=== PATIENT | male | born 1950 | race African-American/Black ===

== ENCOUNTER 2016-05-06 15:33 | Inpatient (IN) | payer MEDICARE ==
[~2016-05-06] VITALS: Ht 185.4 cm; Wt 81.6 kg
[~2016-05-06 15:33] MED LIST: CYCL-108 PO; HYDR-3933 PO; METH4TAB17 PO; OMEP20CA10 PO
[2016-05-06 16:00] VITALS: BP 121/84
[2016-05-06 17:32] VITALS: BP 121/81
[2016-05-06] MEDS ORDERED: HYDR12.529 PO (18:29)
[2016-05-06] MEDS ORDERED: ELLIPTA INH (18:30)
[2016-05-06] MEDS: OMEPRAZOLE 20MG CAPSULE EXTENDED RELEASE PO SCH (19:05)
[2016-05-06] MEDS ORDERED: RIVAROXABAN 10 MG TABLET PO SCH (19:30)
[2016-05-06] MEDS ORDERED: DILTIAZEM HCL 180MG CAPSULE CD 24HR PO NR (19:30)
[2016-05-06 19:49] LABS: BASOPHILS % 1.3 % (0.0-2.0); DIFFERENTIAL COMMENT 0; EOSINOPHILS % 3.5 % (0.0-5.0); HEMATOCRIT. 35.8 % (42.0-52.0); LYMPHOCYTES % 23.4 % (20.0-50.0); MEAN CORPUSCULAR HEMOGLOBIN 28.4 pg (28.0-32.0); MEAN CORPUSCULAR HGB CONC 33.6 g/dL (31.0-37.0); MEAN CORPUSCULAR VOLUME 84.6 fL (80.0-94.0); MEAN PLATELET VOLUME 8.7 fl (7.4-10.4); MONOCYTES % 11.1 % (2.0-8.0); NEUTROPHILS % 60.7 % (40.0-76.0); PLATELET 142 x1000/uL (130-400); RED BLOOD CELL COUNT 4.23 mill/uL (4.7-6.1); RED CELL DISTRIBUTION WIDTH 15.2 % (11.6-14.6); WHITE BLOOD COUNT 4.1 x1000/uL (4.5-11.0)
[2016-05-06 19:55] LABS: INR 1.2; PROTHROMBIN TIME 12.6 sec
[2016-05-06 20:00] VITALS: BP 120/79
[2016-05-06 20:11] LABS: ANION GAP 12; CALCIUM 8.8 mg/dL (8.5-10.1); CARBON DIOXIDE 29 mEq/L (21-32); CHLORIDE 103 mEq/L (98-107); INDEX HEMOLYSI 1 (1-3); INDEX ICTERIC 1 (1-4); INDEX LIPEMIC 1 (1-3); NT PRO B-TYPE NATRIURETIC PEP 3519 pg/mL (5-125); UREA NITROGEN BLOOD 16 mg/dL (7-21); eGFR > 60 mL/min (>60)
[2016-05-06] MEDS ORDERED: ACETAMINOPHEN 325MG TABLET PO PRN (20:15)
[2016-05-06] MEDS: ENOXAPARIN 80MG/0.8ML SYR SUBCUT SCH (20:43)
[2016-05-07] VITALS: BP 99/64
[2016-05-07 06:30] VITALS: BP 98/64
[2016-05-07] MEDS: OMEPRAZOLE 20MG CAPSULE EXTENDED RELEASE PO SCH (06:37)
[2016-05-07] MEDS ORDERED: FUROSEMIDE 40MG/4ML VIAL IVP SCH (07:30)
[2016-05-07] MEDS: DILTIAZEM HCL 180MG CAPSULE CD 24HR PO SCH (08:32)
[2016-05-07] MEDS: POTASSIUM CHLORIDE 10MEQ TABLET SR PO SCH (08:32)
[2016-05-07] MEDS: ENOXAPARIN 80MG/0.8ML SYR SUBCUT SCH ×2 (08:33→21:03)
[2016-05-07 08:34] VITALS: BP 125/76
[2016-05-07] MEDS: FUROSEMIDE 40MG/4ML VIAL IVP SCH (09:00)
[2016-05-07 12:00] VITALS: BP 94/69
[2016-05-07 16:26] VITALS: BP 96/52
[2016-05-07] MEDS ORDERED: RIVAROXABAN 10 MG TABLET PO SCH (17:00)
[2016-05-07 20:00] VITALS: BP 95/68
[2016-05-07 23:08] LABS: BG BASE EXCESS 2.1 mmol/L (-2.0-2.0); BG CARBOXYHEMOGLOBIN 0.5 % (0.5-1.5); BG DEOXYHEMOGLOBIN 5.1 % (0.0-5.0); BG FRACTION INSPIRED OXYGEN 21; BG HCO3 ACT 26.8 mmol/L (22.0-26.0); BG METHEMOGLOBIN 0.3 % (0.0-1.5); BG OXYGEN SATURATION 94.9 % (92.0-98.5); BG OXYHEMOGLOBIN 94.1 % (94.0-97.0); BG PH 7.423 (7.350-7.450); BG PO2 77.2 mmHg (75.0-100.0); BG SAMPLE SITE LEFT RADIAL; BG TOTAL HEMOGLOBIN 12.9 g/dL (12.0-18.0); BG VENT MODE ROOM AIR
[2016-05-07] MEDS: ZOLPIDEM TARTRATE 5MG TABLET PO PRN (23:38)
[2016-05-08] VITALS (7 sets, daily range): BP systolic 90–123; BP diastolic 48–87
[2016-05-08] MEDS ORDERED: MAGNESIUM/ALUMINUM HYDROXIDE/SIMETHICONE 30ML UDC PO NR (00:15)
[2016-05-08] MEDS ORDERED: OMEPRAZOLE 20MG CAPSULE EXTENDED RELEASE PO NR (00:22)
[2016-05-08 07:16] LABS: ANION GAP 11; CARBON DIOXIDE 30 mEq/L (21-32); CHLORIDE 106 mEq/L (98-107); INDEX HEMOLYSI 1 (1-3); INDEX ICTERIC 1 (1-4); INDEX LIPEMIC 1 (1-3); UREA NITROGEN BLOOD 15 mg/dL (7-21); eGFR > 60 mL/min (>60)
[2016-05-08] MEDS: OMEPRAZOLE 20MG CAPSULE EXTENDED RELEASE PO SCH ×2 (07:26→21:19)
[2016-05-08] MEDS: FUROSEMIDE 40MG/4ML VIAL IVP SCH (09:15)
[2016-05-08] MEDS: POTASSIUM CHLORIDE 10MEQ TABLET SR PO SCH (09:15)
[2016-05-08] MEDS: DILTIAZEM HCL 180MG CAPSULE CD 24HR PO SCH (09:16)
[2016-05-08] MEDS: ENOXAPARIN 80MG/0.8ML SYR SUBCUT SCH (09:17)
[2016-05-08] MEDS ORDERED: MAGNESIUM/ALUMINUM HYDROXIDE/SIMETHICONE 30ML UDC PO SCH (20:17)
[2016-05-09] VITALS: BP 97/48
[2016-05-09 04:00] VITALS: BP 95/63
[2016-05-09] MEDS: OMEPRAZOLE 20MG CAPSULE EXTENDED RELEASE PO SCH ×2 (06:12→20:14)
[2016-05-09 08:00] VITALS: BP 98/79
[2016-05-09] MEDS ORDERED: METOLAZONE 5MG TABLET PO NR (08:00)
[2016-05-09] MEDS: DILTIAZEM HCL 180MG CAPSULE CD 24HR PO SCH (09:00)
[2016-05-09] MEDS: FUROSEMIDE 40MG/4ML VIAL IVP SCH ×2 (09:40→17:27)
[2016-05-09] MEDS: POTASSIUM CHLORIDE 10MEQ TABLET SR PO SCH (09:40)
[2016-05-09 12:39] VITALS: BP 103/74
[2016-05-09 16:30] VITALS: BP 101/77
[2016-05-09] MEDS: ENOXAPARIN 80MG/0.8ML SYR SUBCUT SCH (20:15)
[2016-05-09] MEDS: ZOLPIDEM TARTRATE 5MG TABLET PO PRN (20:26)
[2016-05-10] VITALS: BP 96/58
[2016-05-10 04:00] VITALS: BP 92/44
[2016-05-10] MEDS: OMEPRAZOLE 20MG CAPSULE EXTENDED RELEASE PO SCH ×2 (06:13→21:01)
[2016-05-10 07:34] LABS: ANION GAP 10; CALCIUM 9.2 mg/dL (8.5-10.1); CARBON DIOXIDE 33 mEq/L (21-32); CHLORIDE 98 mEq/L (98-107); INDEX HEMOLYSI 1 (1-3); INDEX ICTERIC 1 (1-4); INDEX LIPEMIC 1 (1-3); UREA NITROGEN BLOOD 19 mg/dL (7-21); eGFR > 60 mL/min (>60)
[2016-05-10 07:40] VITALS: BP 99/66
[2016-05-10 07:59] LABS: BASOPHILS % 0.6 % (0.0-2.0); DIFFERENTIAL COMMENT 0; EOSINOPHILS % 2.5 % (0.0-5.0); HEMATOCRIT. 36.5 % (42.0-52.0); HEMOGLOBIN. 12.5 g/dL (14.0-18.0); LYMPHOCYTES % 21.1 % (20.0-50.0); MEAN CORPUSCULAR HEMOGLOBIN 28.8 pg (28.0-32.0); MEAN CORPUSCULAR HGB CONC 34.4 g/dL (31.0-37.0); MEAN CORPUSCULAR VOLUME 83.8 fL (80.0-94.0); MEAN PLATELET VOLUME 9.1 fl (7.4-10.4); MONOCYTES % 12.6 % (2.0-8.0); NEUTROPHILS % 63.2 % (40.0-76.0); PLATELET 151 x1000/uL (130-400); RED BLOOD CELL COUNT 4.35 mill/uL (4.7-6.1); RED CELL DISTRIBUTION WIDTH 15.1 % (11.6-14.6); WHITE BLOOD COUNT 5.2 x1000/uL (4.5-11.0)
[2016-05-10] MEDS: DILTIAZEM HCL 180MG CAPSULE CD 24HR PO SCH (09:00)
[2016-05-10] MEDS: FUROSEMIDE 40MG/4ML VIAL IVP SCH ×3 (09:59→19:38)
[2016-05-10] MEDS: ENOXAPARIN 80MG/0.8ML SYR SUBCUT SCH ×2 (10:00→21:00)
[2016-05-10] MEDS: POTASSIUM CHLORIDE 20MEQ TABLET SR PO SCH ×3 (10:02→19:38)
[2016-05-10 13:07] VITALS: BP 94/60
[2016-05-10] MEDS: MAGNESIUM/ALUMINUM HYDROXIDE/SIMETHICONE 30ML UDC PO PRN (16:34)
[2016-05-10 17:00] VITALS: BP 98/68
[2016-05-10] MEDS ORDERED: POTASSIUM CHLORIDE 20MEQ TABLET SR PO NR (19:00)
[2016-05-10 19:28] LABS: PROTEIN BODY FLUID 3.5 gm/dL
[2016-05-10 20:00] VITALS: BP 100/60
[2016-05-10] MEDS ORDERED: DILTIAZEM HCL 180MG CAPSULE CD 24HR PO NR (20:45)
[2016-05-10 21:52] LABS: BODY FLUID MONOCYTES 12 %; BODY FLUID WBC 1295 /cu mm (0-200)
[2016-05-10] MEDS: ZOLPIDEM TARTRATE 5MG TABLET PO PRN (23:30)
[2016-05-11] VITALS (7 sets, daily range): BP systolic 86–107; BP diastolic 52–67
[2016-05-11] MEDS: OMEPRAZOLE 20MG CAPSULE EXTENDED RELEASE PO SCH ×2 (05:47→23:39)
[2016-05-11] MEDS: POTASSIUM CHLORIDE 20MEQ TABLET SR PO SCH (09:00)
[2016-05-11] MEDS: DILTIAZEM HCL 180MG CAPSULE CD 24HR PO SCH (10:35)
[2016-05-11] MEDS: ENOXAPARIN 80MG/0.8ML SYR SUBCUT SCH ×2 (10:36→20:33)
[2016-05-11 16:57] LABS: ANION GAP 11; CALCIUM 9.4 mg/dL (8.5-10.1); CARBON DIOXIDE 34 mEq/L (21-32); CHLORIDE 97 mEq/L (98-107); INDEX HEMOLYSI 1 (1-3); INDEX ICTERIC 1 (1-4); INDEX LIPEMIC 1 (1-3); UREA NITROGEN BLOOD 23 mg/dL (7-21); eGFR > 60 mL/min (>60)
[2016-05-11] MEDS: MAGNESIUM/ALUMINUM HYDROXIDE/SIMETHICONE 30ML UDC PO PRN (17:52)
[2016-05-12 04:00] VITALS: BP 108/56
[2016-05-12 08:00] VITALS: BP 113/70
[2016-05-12] MEDS: OMEPRAZOLE 20MG CAPSULE EXTENDED RELEASE PO SCH (10:30)
[2016-05-12] MEDS: POTASSIUM CHLORIDE 20MEQ TABLET SR PO SCH (10:31)
[2016-05-12] MEDS: ENOXAPARIN 80MG/0.8ML SYR SUBCUT SCH (10:31)
[2016-05-12] MEDS: DILTIAZEM HCL 180MG CAPSULE CD 24HR PO SCH (10:31)
[2016-05-12 12:00] VITALS: BP 107/55
[2016-05-12 14:48] VITALS: BP 107/55
== END 2016-05-12 15:50 | disposition home or self-care (01) | DRG 291 ==
LOC: 7EST 15:33 → 5WST 05-07 10:19
PROVIDERS: ADMIT Internal Medicine; ATTEND Internal Medicine
PROC: 0W9B3ZZ Drainage of Left Pleural Cavity, Percutaneous Approach (ICD-10-PCS; principal; 2016-05-09)
PROC: BB4BZZZ Ultrasonography of Pleura (ICD-10-PCS; 2016-05-09)
DX: I13.0 Hypertensive heart and chronic kidney disease with heart failure and stage 1 through stage 4 chronic kidney disease, or unspecified chronic kidney disease (principal); I50.31 Acute diastolic (congestive) heart failure; I48.92 Unspecified atrial flutter; J84.9 Interstitial pulmonary disease, unspecified; I48.1 Persistent atrial fibrillation; I47.2 Ventricular tachycardia; I49.3 Ventricular premature depolarization; K21.9 Gastro-esophageal reflux disease without esophagitis; I50.9 Heart failure, unspecified; N18.9 Chronic kidney disease, unspecified; I42.2 Other hypertrophic cardiomyopathy; Z96.643 Presence of artificial hip joint, bilateral; Z96.651 Presence of right artificial knee joint; Z80.42 Family history of malignant neoplasm of prostate
CPT/HCPCS: 32555; 36415; 36600; 71010; 71020; 80048; 82375; 82805; 82945; 83615; 83735; 83880; 84157; 85025; 85610; 85730; 87070; 87205; 88108; 88312; 89050; 93005; 93306; 93308; J1650; J1940

== ENCOUNTER → 2016-05-29 | Outpatient (CLI) | payer MEDICARE ==
[~2016-05-29] MED LIST changes: -CYCL-108 PO; +ELLIPTA INH; -HYDR-3933 PO; +HYDR12.529 PO; -METH4TAB17 PO
== END | disposition home or self-care (01) ==
LOC: CT 07:50
PROVIDERS: ATTEND Internal Medicine Clinical Cardiac Electrophysiology
DX: I48.91 Unspecified atrial fibrillation (principal); I47.2 Ventricular tachycardia; I74.8 Embolism and thrombosis of other arteries; J98.11 Atelectasis; J44.9 Chronic obstructive pulmonary disease, unspecified; J90 Pleural effusion, not elsewhere classified; I51.7 Cardiomegaly
CPT/HCPCS: 75572

== ENCOUNTER → 2016-07-13 | Outpatient (CLI) | payer MEDICARE ==
[~2016-07-13] MED LIST changes: +APIX5TAB PO; +DILT240C3 PO; -ELLIPTA INH; +FURO80TA3 PO; -HYDR12.529 PO; +POTA8TAB8 PO
[2016-07-13 17:36] LABS: HEMATOCRIT 34.6 % (42.0-52.0); HEMOGLOBIN 11.9 g/dL (14.0-18.0)
[2016-07-13 17:40] LABS: CHLORIDE 102 mEq/L (98-107); INDEX HEMOLYSI 1 (1-3); INDEX ICTERIC 1 (1-4); INDEX LIPEMIC 1 (1-3)
[2016-07-13 17:56] LABS: ANION GAP 15; CARBON DIOXIDE 30 mEq/L (21-32); NT PRO B-TYPE NATRIURETIC PEP 6951 pg/mL (5-125); UREA NITROGEN BLOOD 28 mg/dL (7-21); eGFR > 60 mL/min (>60)
== END | disposition home or self-care (01) ==
LOC: LAB 17:07
DX: I42.9 Cardiomyopathy, unspecified (principal); R55 Syncope and collapse
CPT/HCPCS: 36415; 80051; 82565; 82947; 83880; 84520; 85014; 85018